=== PATIENT | female | born 1960 | race Caucasian/White ===

== ENCOUNTER → 2017-12-14 | Outpatient (CLI) | payer BC ==
--- NOTE | 2017-12-15 08:16 | MM ---
Reason for exam: screening (asymptomatic). Last mammogram was performed 1 year and 10 months ago. History: Family history of breast cancer in cousin at age 48. Physical Findings: A clinical breast exam by your physician is recommended on an annual basis and results should be correlated with mammographic findings. MG Screening Mammo w CAD Bilateral CC and MLO view(s) were taken. Prior study comparison: February 17, 2016, bilateral MG screening mammo w CAD. February 14, 2010, mammogram, performed at [facility]. Stable benign calcifications. Neodensity upper central left breast 6cm from nipple. ASSESSMENT: Incomplete: need additional imaging evaluation, BI-RAD 0 RECOMMENDATION: Special view mammogram of the left breast. If lesion persists on supplemental views, image directed ultrasound is recommended. [facility] will attempt to contact patient to return for supplemental views and ultrasound if indicated.
== END | disposition home or self-care (01) ==
LOC: RADMAMWWP 13:57
PROVIDERS: ATTEND Family Medicine
DX: Z12.31 Encounter for screening mammogram for malignant neoplasm of breast (principal)
CPT/HCPCS: 77067

== ENCOUNTER → 2017-12-22 | Outpatient (CLI) | payer BC ==
--- NOTE | 2017-12-22 08:38 | MM ---
Reason for exam: additional evaluation requested from abnormal screening. Last mammogram was performed less than 1 month ago. History: Family history of breast cancer in cousin at age 48. Physical Findings: Nurse did not find any significant physical abnormalities on exam. MG Work Up Mamm w CAD LT Spot compression CC, spot compression MLO, and ML view(s) were taken of the left breast. Prior study comparison: December 14, 2017, bilateral MG screening mammo w CAD. February 17, 2016, bilateral MG screening mammo w CAD. The breast tissue is heterogeneously dense. This may lower the sensitivity of mammography. There is no discrete abnormality at previous density. These results were verbally communicated with the patient and result sheet given to the patient on 12/22/17. ASSESSMENT: Benign, BI-RAD 2 RECOMMENDATION: Return to routine screening mammogram schedule for both breasts.
== END | disposition home or self-care (01) ==
LOC: RADMAMWWP 06:56
PROVIDERS: ATTEND Family Medicine
DX: R92.8 Other abnormal and inconclusive findings on diagnostic imaging of breast (principal); Z80.3 Family history of malignant neoplasm of breast
CPT/HCPCS: 77065

== ENCOUNTER → 2017-12-26 | Outpatient (CLI) | payer BC ==
[2017-12-26 09:03] LABS: Basophils % (A) 0 %; Eosinophils # (A) 0.3 k/uL (0-0.7); Eosinophils % (A) 4 %; HCT 43.6 % (34.0-46.0); HGB 14.3 gm/dL (11.4-16.0); Lymphocytes # (A) 1.6 k/uL (1.0-4.8); Lymphocytes % (A) 23 %; MCH 30.6 pg (25.0-35.0); MCHC 32.9 g/dL (31.0-37.0); Mean Platelet Volume 7.7; Monocytes # (A) 0.9 k/uL (0-1.0); Monocytes % (A) 12 %; Neutrophils # (A) 4.1 k/uL (1.3-7.7); Neutrophils % (A) 59 %; Platelet Count 226 k/uL (150-450); RBC 4.68 m/uL (3.80-5.40); RDW 12.8 % (11.5-15.5)
[2017-12-26 09:30] LABS: ALT 29 U/L (9-52); AST 19 U/L (14-36); Alkaline Phosphatase 46 U/L (38-126); Anion Gap 10 mmol/L; Blood Urea Nitrogen 26 mg/dL (7-17); Calcium 10.6 mg/dL (8.4-10.2); Carbon Dioxide 31 mmol/L (22-30); Chloride 104 mmol/L (98-107); Cholesterol 233 mg/dL (<200); Glucose 98 mg/dL (74-99); HDL Cholesterol 67 mg/dL (40-60); LDL Cholesterol,Calculated 141 mg/dL (0-99); Potassium 4.7 mmol/L (3.5-5.1); Sodium 145 mmol/L (137-145); Total Bilirubin 0.7 mg/dL (0.2-1.3); Total Protein 6.6 g/dL (6.3-8.2); Triglycerides 123 mg/dL (<150)
[2017-12-26 18:58] LABS: Hemoglobin A1C 5.7 % (4.0-6.0)
== END | disposition home or self-care (01) ==
LOC: LABWHC1 07:55
PROVIDERS: ATTEND Family Medicine
DX: I10 Essential (primary) hypertension (principal); R73.9 Hyperglycemia, unspecified; Z13.220 Encounter for screening for lipoid disorders; Z13.29 Encounter for screening for other suspected endocrine disorder
CPT/HCPCS: 36415; 80053; 80061; 83036; 84443; 85025

== ENCOUNTER → 2019-09-04 | Outpatient (CLI) | payer BC ==
--- NOTE | 2019-09-05 13:49 | MM ---
Reason for exam: screening (asymptomatic). Last mammogram was performed 1 year and 8 months ago. History: Family history of breast cancer in cousin at age 48. Physical Findings: A clinical breast exam by your physician is recommended on an annual basis and results should be correlated with mammographic findings. MG 3D Screening Mammo W/Cad Bilateral CC and MLO view(s) were taken. Prior study comparison: December 22, 2017, left breast MG work up mamm w CAD LT. December 14, 2017, bilateral MG screening mammo w CAD. No significant changes when compared with prior studies. ASSESSMENT: Benign, BI-RAD 2 RECOMMENDATION: Routine screening mammogram of both breasts in 1 year.
== END | disposition home or self-care (01) ==
LOC: RADMAMWWP 07:01
PROVIDERS: ATTEND Family Medicine
DX: Z12.31 Encounter for screening mammogram for malignant neoplasm of breast (principal)
CPT/HCPCS: 77063; 77067

== ENCOUNTER → 2019-09-04 | Outpatient (CLI) | payer BC ==
[2019-09-04 08:42] LABS: Basophils # (A) 0.1 k/uL (0-0.2); Basophils % (A) 1 %; Eosinophils # (A) 0.2 k/uL (0-0.7); Eosinophils % (A) 5 %; HGB 14.4 gm/dL (11.4-16.0); Lymphocytes # (A) 1.1 k/uL (1.0-4.8); Lymphocytes % (A) 26 %; MCH 31.6 pg (25.0-35.0); MCHC 32.7 g/dL (31.0-37.0); MCV 96.6 fL (80.0-100.0); Mean Platelet Volume 7.6; Monocytes # (A) 0.3 k/uL (0-1.0); Monocytes % (A) 6 %; Neutrophils # (A) 2.6 k/uL (1.3-7.7); Neutrophils % (A) 60 %; Platelet Count 207 k/uL (150-450); RBC 4.56 m/uL (3.80-5.40); RDW 12.6 % (11.5-15.5); WBC 4.4 k/uL (3.8-10.6)
[2019-09-04 12:03] LABS: African American GFR (CKD) 109.1 (60.0-200.0); Albumin 4.2 g/dL (3.80-4.90); Albumin/Globulin Ratio 2.47 (1.60-3.17); Anion Gap 5.1 mmol/L (4.00-12.00); BUN/Creat Ratio 31.43 Ratio (12.00-20.00); Calcium 9.9 mg/dL (8.7-10.3); Carbon Dioxide 30.9 mmol/L (21.6-31.8); Chol/HDL Ratio 2.33; Globulin 1.7 g/dL (1.6-3.3); LDL Cholesterol,Calculated 85.8 mg/dL (0.0-131.0); Non-African American GFR(CKD) 94.2 (60.0-200.0); Potassium 4.3 mmol/L (3.5-5.5); Total Bilirubin 0.6 mg/dL (0.3-1.2); Total Protein 5.9 g/dL (6.2-8.2); VLDL Calculation 14.2 mg/dL (5.00-40.00)
== END | disposition home or self-care (01) ==
LOC: LABWHC1 07:29
PROVIDERS: ATTEND Family Medicine
DX: Z01.419 Encounter for gynecological examination (general) (routine) without abnormal findings (principal); E78.00 Pure hypercholesterolemia, unspecified; I10 Essential (primary) hypertension; Z13.29 Encounter for screening for other suspected endocrine disorder
CPT/HCPCS: 36415; 80053; 80061; 84443; 85025

== ENCOUNTER → 2020-12-14 | Outpatient (CLI) | payer OTHER ==
--- NOTE | 2020-12-14 18:45 | BD ---
EXAMINATION TYPE: Axial Bone Density DATE OF EXAM: 12/14/2020 COMPARISON: 02.17.2016 CLINICAL HISTORY: 60 YR OLD FEMALE........ICD-10 CODE: Z78.0 POST MENOPAUSE Height: 62.2 Weight: 192 FRAX RISK QUESTIONS: NOTHING TO NOTE HERE RISK FACTORS HISTORY OF: HX OF FOOT FX AT 44 YRS OLD Family History of Osteoporosis: YES, MOTHER NO HIP BREAK Active: YES Diet low in dairy products/other sources of calcium: YES Postmenopausal woman: YES AT 50 YRS OLD Hyperparathyroidism: NO Adrenal Insufficiency: NO MEDICATIONS: Additional Medications: BP MEDS, STATIN FOR CHOLESTEROL, Additional History: HYPERTENSION, CHOLESTEROL EXAM MEASUREMENTS: Bone mineral densitometry was performed using the [employer] System. Bone mineral density as measured about the Lumbar spine is: ----- L1-L4(G/cm2): 0.978 T Score Values are as follows: ----- L1: -1.3 ----- L2: -2.4 ----- L3: -2.0 ----- L4: -1.2 ----- L1-L4: -1.7 Bone mineral density has: Decreased -1.3% since study of: 02.17.2016 Bone mineral density about the R hip (g/cm2): 0.934 Bone mineral density about the L hip (g/cm2): 0.899 T Score values are as follows: -----R Neck: -1.2 -----L Neck: -1.7 -----R Total: -0.6 -----L Total: -0.9 Bone mineral density has: Decreased -1.5% since study of: 02.17.2016 FRAX%s: THERE IS A 14.2% CHANCE FOR A MAJOR OSTEOPOROTIC FX AND A 1.5% FOR HIP.....PROBABILITY FOR FX IN 10 YRS TIME IMPRESSION: Osteopenia (T Score between -2.5 and -1). There is slightly increased risk of fracture and the patient may be considered for treatment. Re-Screen 2-5 years. NOTE: T-SCORE=SD OF THE YOUNG ADULT MEAN.
--- NOTE | 2020-12-16 14:08 | MM ---
Reason for exam: screening (asymptomatic). Last mammogram was performed 1 year and 3 months ago. History: Patient is postmenopausal. Family history of breast cancer in cousin at age 48. Physical Findings: A clinical breast exam by your physician is recommended on an annual basis and results should be correlated with mammographic findings. MG 3D Screening Mammo W/Cad Bilateral CC and MLO view(s) were taken. Prior study comparison: September 04, 2019, bilateral MG 3d screening mammo w/cad. December 22, 2017, left breast MG work up mamm w CAD LT. There are scattered fibroglandular densities. No significant changes when compared with prior studies. ASSESSMENT: Benign, BI-RAD 2 RECOMMENDATION: Routine screening mammogram of both breasts in 1 year.
== END | disposition home or self-care (01) ==
LOC: RADMAMWWP 07:40
PROVIDERS: ATTEND Family Medicine
DX: M85.80 Other specified disorders of bone density and structure, unspecified site (principal)
CPT/HCPCS: 77063; 77067; 77080

== ENCOUNTER → 2022-01-11 | Outpatient (CLI) | payer BC ==
--- NOTE | 2022-01-12 12:34 | MM ---
Reason for exam: screening (asymptomatic). Last mammogram was performed 1 year and 1 month ago. History: Patient is postmenopausal. Family history of breast cancer in cousin at age 48. Physical Findings: A clinical breast exam by your physician is recommended on an annual basis and results should be correlated with mammographic findings. MG 3D Screening Mammo W/Cad Bilateral CC and MLO view(s) were taken. Prior study comparison: December 14, 2020, bilateral MG 3d screening mammo w/cad. September 04, 2019, bilateral MG 3d screening mammo w/cad. There are scattered fibroglandular densities. No significant changes when compared with prior studies. ASSESSMENT: Benign, BI-RAD 2 RECOMMENDATION: Routine screening mammogram of both breasts in 1 year.
== END | disposition home or self-care (01) ==
LOC: RADMAMWWP 06:59
PROVIDERS: ATTEND Family Medicine
DX: Z12.31 Encounter for screening mammogram for malignant neoplasm of breast (principal)
CPT/HCPCS: 77063; 77067

== ENCOUNTER → 2024-06-03 | Outpatient (CLI) | payer MEDICARE ==
--- NOTE | 2024-06-05 22:57 | MM ---
Reason for Exam: Screening (asymptomatic). Last mammogram was performed 2 year(s) and 5 month(s) ago. Patient History: Menarche at age 11. First Full-Term at age 27. Hysterectomy at age 45. Postmenopausal. Maternal cousin had breast cancer, age 48. Risk Values: Yanira 5 year model risk: 1.8%. NCI Lifetime model risk: 6.9%. Prior Study Comparison: 09/04/2019 Bilateral Screening Mammogram, [facility]. 12/14/2020 Bilateral Screening Mammogram, [facility]. 01/11/2022 Bilateral Screening Mammogram, [facility]. Tissue Density: There are scattered areas of fibroglandular density. Findings: Analyzed By CAD. The pattern is symmetrical. Pattern appears stable. Scattered benign punctate calcifications are present bilaterally No suspicious groups of microcalcifications, spiculated or lobular masses, architectural distortion or other secondary signs of malignancy are mammographically apparent. Overall Assessment: Benign, BI-RAD 2 Management: Screening Mammogram of both breasts in 1 year. A negative mammogram report should not preclude additional follow up of suspicious palpable abnormalities. Patient should continue monthly self breast exam. A clinical breast exam by your physician is recommended on an annual basis and results should be correlated with mammographic findings. Note on Yanira scores and lifetime risk: 1. A Yanira score greater than 3% is considered moderate risk. If this is the case, consider specialist referral to assess eligibility for a risk reducing agent. 2. If overall lifetime risk for the development of breast cancer is 20% or higher, the patient may qualify for future screening with alternating mammogram and breast MRI. [facility], , 06/05/2024 10:54 PM. Electronically signed and approved by: Norman Fine D.O. Radiologis
== END | disposition home or self-care (01) ==
LOC: RADMAMWWP 12:51
PROVIDERS: ATTEND Family Medicine
DX: Z12.31 Encounter for screening mammogram for malignant neoplasm of breast
CPT/HCPCS: 77063; 77067